=== PATIENT | male | born 2000 ===

== ENCOUNTER 2025-07-13 09:56 | Outpatient (CLI) | payer BC, SELFPAY ==
[2025-07-13 11:46] LABS: Hemoglobin A1C 7.9 % (4.0-6.0)
[2025-07-13 11:47] LABS: Estmated Average Glucose 180
[2025-07-13 11:50] LABS: Cholesterol 203 mg/dL (0-200); HDL Cholesterol 55 mg/dL (60-100); Triglycerides 73 mg/dL (0-150)
[2025-07-13 12:00] LABS: Creatinine Urine, Random 314 mg/dL (39-259); Microalbum Creatinine Ratio Ur 13 mg/dL (0-20)
== END 2025-07-13 09:57 | disposition home or self-care (01) ==
PROVIDERS: Visit Provider Internal Medicine
DX: E10.9 Type 1 diabetes mellitus without complications (principal)
CPT/HCPCS: 36415; 80061; 82044; 83036